=== PATIENT | male | born 1960 | race Caucasian/White ===

== ENCOUNTER → 2017-12-24 | Outpatient (CLI) | payer BC | LOC: ZCOL.LAB 16:04 | DX: Z01.812 Encounter for preprocedural laboratory examination (principal); Z86.14 Personal history of Methicillin resistant Staphylococcus aureus infection ==

== ENCOUNTER → 2018-05-03 | Outpatient (CLI) | payer BC | LOC: COL.LAB 09:57 | DX: Z01.812 Encounter for preprocedural laboratory examination (principal); Z86.14 Personal history of Methicillin resistant Staphylococcus aureus infection ==

== ENCOUNTER 2018-05-22 16:41 | Emergency (ER) | payer BC ==
[~2018-05-22] VITALS: Ht 175.3 cm; Wt 80.9 kg
[2018-05-22 16:44] VITALS: TEMP 98.6
[2018-05-22] MEDS ORDERED: XARELTO10 MG PO (17:04)
[2018-05-22 17:08] LABS: BASO % 0.1 % (0.0-2.0); EOS # 0.1 (0.0-0.7); EOS % 1.4 % (0-4.0); GRAN # 5.2 (1.4-6.5); GRAN % 61.6 % (42.2-75.2); HEMOGLOBIN 12.8 g/dl (13.5-18.0); LYMPH # 2.3 (1.2-3.4); LYMPH % 26.6 % (20.0-51.0); MEAN CELL VOLUME 93 fl (80.0-100.0); MEAN CORPUSCULAR HEMOGLOBIN 33 pg (27.0-31.0); MEAN CORPUSCULAR HGB CONC 35 g/dl (33.0-37.0); MEAN PLATELET VOLUME 9.8 fl (7.4-10.4); MONO # 0.7 (0.1-0.6); MONO % 8.7 % (1.7-9.3); PLATELET COUNT 209 K/mm3 (130-400); REDCELL DISTRIBUTION WIDTH-CV 13.2 % (11.5-14.5)
[2018-05-22 17:09] LABS: HEMATOCRIT 36.4 % (42.0-52.0)
[2018-05-22 20:52] VITALS: BP 140/94; PULSE 65
== END 2018-05-22 21:04 | disposition home or self-care (01) ==
LOC: COL.ER 16:41
PROVIDERS: Emergency Medicine
DX: G44.40 Drug-induced headache, not elsewhere classified, not intractable (principal); T88.59XA Other complications of anesthesia, initial encounter; T41.3X5A Adverse effect of local anesthetics, initial encounter; R42 Dizziness and giddiness; R11.0 Nausea
CPT/HCPCS: J1170; J2405; J3010; J7030